=== PATIENT | male | born 1970 | race Caucasian/White ===

== ENCOUNTER 2016-10-09 09:12 | Emergency (ER) | payer BC ==
[2016-10-09 09:27] VITALS: BP 145/103
[2016-10-09] MEDS ORDERED: MOTRIN PO ONE (09:41)
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
--- NOTE | 2016-10-09 10:14 | XRay Report ---
ROUTINE CHEST, TWO VIEWS: HISTORY: Cough. The trachea, heart, mediastinal contour, lung akhtar and bony thorax are unremarkable. IMPRESSION: Unremarkable chest x-ray.
== END 2016-10-09 10:37 | disposition home or self-care (01) ==
LOC: ED 09:12
DX: J11.1 Influenza due to unidentified influenza virus with other respiratory manifestations (principal)
CPT/HCPCS: 71020; 99283